=== PATIENT | female | born 1990 | race Asian ===

== ENCOUNTER → 2017-08-10 | Outpatient (CLI) | payer SELFPAY ==
[2017-08-10 12:57] LABS: FREE T3 6.24 PG/ML (2.18-3.98); FREE T4 2.45 NG/DL (0.76-1.46)
== END ==
LOC: CLAB 11:44
DX: E05.90 Thyrotoxicosis, unspecified without thyrotoxic crisis or storm (principal); Z83.49 Family history of other endocrine, nutritional and metabolic diseases
CPT/HCPCS: 36415; 84439; 84443; 84445; 84481; 86376; 86800

== ENCOUNTER → 2017-09-27 | Outpatient (CLI) | payer SELFPAY ==
[2017-09-27 14:52] LABS: AUTOMATED NEUTROPHIL # 14.3 TH/MM3 (1.8-7.7); BASOPHIL % 0.2 % (0.0-2.0); EOSINOPHIL # 0.1 TH/MM3 (0-0.4); EOSINOPHIL % 0.8 % (0.0-4.0); HEMATOCRIT 33.7 % (35.0-46.0); HEMO FLAGS DIFF FINAL; LYMPHOCYTE # 1.5 TH/MM3 (1.0-4.8); MEAN CELL VOLUME 85.2 FL (80.0-100.0); MEAN CORPUSCULAR HEMOGLOBIN 28.2 PG (27.0-34.0); MEAN CORPUSCULAR HGB CONC 33.1 % (32.0-36.0); MONO % 3.9 % (0.0-8.0); NEUT % 86.1 % (16.0-70.0); PLATELET COUNT 274 TH/MM3 (150-450); RED BLOOD COUNT 3.95 MIL/MM3 (4.00-5.30); RED CELL DISTRIBUTION WIDTH 12.5 % (11.6-17.2); WHITE BLOOD COUNT 16.6 TH/MM3 (4.0-11.0)
[2017-09-27 15:06] LABS: ALT (GPT) 15 U/L (10-53); ANION GAP 9 MEQ/L (5-15); AST (GOT) 14 U/L (15-37); BICARBONATE 24.3 MEQ/L (21.0-32.0); BLOOD UREA NITROGEN 10 MG/DL (7-18); CHLORIDE 104 MEQ/L (98-107); GLOMERULAR FILTRATION RATE 174 ML/MIN (>89); GLUCOSE,FASTING 80 MG/DL (74-99); POTASSIUM 3.8 MEQ/L (3.5-5.1); SODIUM (NA) 137 MEQ/L (136-145)
[2017-09-27 15:16] LABS: FREE T3 4.84 PG/ML (2.18-3.98); FREE T4 2.21 NG/DL (0.76-1.46)
== END ==
LOC: CLAB 14:19
DX: E05.90 Thyrotoxicosis, unspecified without thyrotoxic crisis or storm (principal)
CPT/HCPCS: 36415; 80048; 84439; 84443; 84450; 84460; 84481; 85025